=== PATIENT | female | born 1945 | race Caucasian/White ===

== ENCOUNTER 2017-07-04 06:34 | Inpatient (IN) ==
[2017-07-04] MEDS ORDERED: Lidocaine -MPF 4% 5 ML AMPUL ONE (06:49)
[2017-07-04] MEDS ORDERED: *HR* FentaNYL (PF) 100 MCG/2 ML VIAL ONE (06:54)
[2017-07-04] MEDS ORDERED: *HR* Rocuronium Bromide 50 MG/5 ML VIAL ONE (06:55)
[2017-07-04] MEDS ORDERED: Dexamethasone 4 MG/ML VIAL ONE ×2 (06:55→12:40)
[2017-07-04] MEDS ORDERED: *HR* Phenylephrine 10 MG/ML VIAL ONE ×2 (06:55→12:14)
[2017-07-04] MEDS ORDERED: *HR* Succinylcholine 200 MG/10 ML VIAL IVP ONE (06:55)
[2017-07-04] MEDS ORDERED: *HR* Heparin 5,000 UNIT/ML VIAL ONE ×2 (06:55→12:10)
[2017-07-04] MEDS ORDERED: *HR* Propofol 200 MG/20 ML VIAL IVP ONE ×2 (06:55→07:09)
[2017-07-04] MEDS ORDERED: Ondansetron 4 MG/2 ML VIAL ONE ×3 (06:55→12:40)
[2017-07-04] MEDS ORDERED: Lidocaine -MPF 2% 2 ML VIAL ONE (06:55)
--- NOTE | 2017-07-04 07:00 | Anesthesia Evaluation PreOp ---
Date of Encounter: 07/04/17 Time of Encounter: 06:55 - Past History Planned Operation: Left Femoral to Right Femoral Bypass Graft - Cardiac History: HTN, Hyperlipidemia, Other (Peripheral artery disease with intermittent claudication.) Pulmonary History: Smoker (1 pack/day for many years. 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 WBC 11.3 Hgb 13.1 Hct 40 Plt 289 PT 11.2 INR 1.0 PTT 26.7 Na 134 K 3.9 VPu136 CO2 19 BUN 15 Creat 0.9 Glucose 178 - Imaging EKG: report reviewed (Sinus Tachycardia with VR of 112. Anteroseptal AL ( Done on 06/29/2017)) Anesthesia Exam - HEENT Mallampati: II Teeth: Normal Oral Opening: Greater than 3 - BOILER SERVICE TECHNICIAN LOC: Oriented - Cardiac Murmur: None JVD: No Carotid Bruit: No - Pulmonary Breath Sounds: bilateral Clear Anesthesia Assess/Plan ASA Score: 2 Modified [place] Scale for Level of Consciousness: Cooperative, oriented, and tranquil Anesthetic Plan: General Autologous Blood: No Monitoring Plan: Standard Monitors Recovery Plan: PACU
[2017-07-04] MEDS ORDERED: *HR* Remifentanil 2 MG VIAL IVP ONE ×2 (07:08→11:06)
[2017-07-04] MEDS ORDERED: Heparin 1,000 UNITS/500 mL 1,000 ML ONE ×2 (07:13→11:02)
[2017-07-04] MEDS ORDERED: Heparin 1,000 UNITS/500 mL 500 ML ONE (07:24)
--- NOTE | 2017-07-04 07:24 | History & Physical Report ---
Date of Encounter: 07/04/17 Time of Encounter: 07:24 24 Hour HP Update - Instructions Instructions: If the History and Physical is less than 30 days old and was completed prior to A.M. admission and or procedure and has NOT been updated on calendar day of procedure please complete this update prior to performing procedure. - Update Patient reports changes in Medical Condition: No Changes in examination, assessment, or condition: No Changes in Medication: No Preop tests/diagnostics Reviewed: Yes Surgery Remains Indicated: Yes Consent for Planned Operative Procedure(s) Verified: Yes - Pre-Operative Checklist Preoperative Checklist Indicated: Yes Prophylactic Antibiotic Ordered: Yes Home Medications Include Beta Lily: No Beta Lily Taken Today (Day of Surgery): No Beta Lily Taken Yesterday (Day Prior to Surgery): No Is VTE Prophylaxis Indicated?: Yes
[2017-07-04] MEDS ORDERED: *HR* Midazolam HCl 2 MG/2 ML VIAL ONE (07:50)
[2017-07-04] MEDS ORDERED: Albuterol 2.5 MG/3 ML NEBULIZER IH ONE ×2 (08:07→09:44)
[2017-07-04] MEDS ORDERED: CeFAZolin Syr 2,000MG/20 ML 2,000 MG/20 ML SYRINGE IVPB ONE (08:07)
[2017-07-04] MEDS ORDERED: Ringers Solution, Lactated 1,000 ML IVC SCH (08:15)
--- NOTE | 2017-07-04 09:43 | Anesthesia Procedures ---
Date of Encounter: 07/04/17 Time of Encounter: 09:00 Procedures: Anesthesia - Arterial Line Consent obtained: verbal consent Time out performed: Yes Size (Gauge): 20 Technique Used: sterile prep, direct puncture technique Post-Procedure: dry sterile dressing placed Patient tolerated procedure: well, no complications Complications: none Site: Radial L Vitals: Vital Signs - Last 8 Hours Temp Pulse Resp BP Pulse Ox 07/04/17 08:22 98.2 F 88 18 115/77 97 07/04/17 06:57 98.2 F 88 18 115/77 97 Intake and Output 07/03/17 07/04/17 07/04/17 23:59 07:59 15:59 Other: Weight 68.946 kg 68.946 kg Blood Glucose* 179 179 Patient Weight 07/04/17 23:59 Weight 68.946 kg Comments: ULTRASOUND USED FOR RADIAL TONI AFTER INDUCTION
[2017-07-04] MEDS ORDERED: *HR* Labetalol 20 MG/4 ML SYRINGE IVP PRN (09:44)
[2017-07-04] MEDS ORDERED: *HR* Promethazine 25 MG/ML VIAL IVP PRN (09:44)
[2017-07-04] MEDS ORDERED: *HR* HYDROmorphone (PF) 1 MG/ML SYRINGE IVP PRN (09:44)
[2017-07-04] MEDS ORDERED: EPHEDrine 50 MG/ML VIAL ONE (11:11)
--- NOTE | 2017-07-04 13:13 | Operative Note ---
Date of procedure: 07/04/17 Pre-op diagnosis: PAD/claudication Post-op diagnosis: same Procedure: bilateral open femoral exposure aortic catheterization, non selective bilateral iliac artery and in stent stenosis balloon angioplasties, using 5, 6, and 8 mm diameter balloons Complications: none Anesthesia: BRYA Surgeon: Gabriel Covarrubias Estimated blood loss (cc): 150 Specimen: none Condition: stable Disposition: PACU Procedure in Detail: History Yancy Oswald is a 71-year-old white female who was seen in consultation from an outside facility for evaluation of lower extremity pain. The patient cleaned of bilateral lower extremity pain worse on the right side than on the left. Ankle-brachial index was approximately 0.3 on the right and approximately 0.4 on the left. She has had previous interventions dating back to 2011 that included iliac artery stent angioplasties. She had a repeat loon intervention in February of this year and [facility]. The patient has had recurrent symptoms particularly on the right side. ACTH Ej demonstrated occlusion of the right iliac system. The patient now comes in for revascularization of the lower extremities. Procedure After informed consent was obtained the patient was taken to the operating room. General endotracheal anesthesia was established and an arterial line was placed. A timeout protocol was observed. The abdomen groin and right lower extremity was then sterilely prepped and draped. An incision was made in the right groin in a vertical orientation with the anticipation the patient may require endarterectomy and patch. Dissection revealed however that the artery though small in diameter was quite soft and there is no obvious plaque formation. This vessel was without pulsation. After adequate control was obtained of this vessel and 18-gauge needle was used to puncture the vessel in a retrograde manner. This is followed by a wire and a short 6 Kisw[place]ili sheath. The dilator was removed and the sheath was aspirated and flushed. An angiogram was then performed through the sheath. This demonstrated occlusion of the right iliac system. A wire was then placed and under fluoroscopic control it was manipulated through the right iliac artery occlusion. It was then passed into the aorta and reentry into the true lumen of the aorta was confirmed with contrast injection. Should be noted the patient has kissing stents from a previous intervention about 5 years ago. Due to the orientation of the stents overlapping nature of the stents it was thought gonzalez to protect the left iliac stent. Therefore the left groin was opened and a vascular access was obtained using a needle and a wire and a standard length 6 Kis[place]ili sheath. Through a retrograde injection on the left side it was identified that the patient had a high-grade stenosis in the left external iliac artery of approximately 90%. This is a multifocal area. Heparin was then administered a dose of 5000 units. An angioplasty was performed of the right iliac system using a 5 mm wide by 200 mm long balloon. At the same time a 5 x 40 balloon was placed into the left common iliac stent to protect this stent from being dislodged or stenosed. The balloons were then inflated simultaneously. A completion anterior was performed. This showed an inadequate response and the stents appeared to measure approximately 8 mm in diameter. Also the patient's stenosis on the left external iliac artery were quite clear. Therefore this left iliac area was angioplastied again with balloons with a successful result as confirmed by retrograde angiogram. A Omni Flush catheter was placed via the left side into the aortic bifurcation and a formal aortogram was obtained. This demonstrated that the right common iliac artery stent was incompletely dilated and there was minimal to no flow in the right external iliac artery. There was no flow in the right internal iliac artery. Therefore a series of balloons were then placed including an 8 mm diameter balloon placed in each stent and inflated again because of the kissing nature of the stents and her overlapping position. Then a 6 mm diameter stents were placed into the right external iliac artery. After series of dilatations a completion in [place] was then obtained. This demonstrated that both iliac systems were now patent. The stent areas were widely patent. 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 With these findings and pulsatile flow to the level of the common femoral artery femoral-femoral bypass graft was now no longer needed. Therefore the catheters were removed and the puncture sites were closed using 6- 0 Prolene suture. After appropriate backbleeding and flushing pulsatile flow into the lower extremities was restored first to the right ligament to the left. There is no hemodynamic distress with this maneuver. The groin incisions were then irrigated and hemostasis achieved. Doppler signals were identified proximal and distal to the area of the puncture. Doppler signals identified over the dorsum of the right foot. The wounds were then closed in layers using absorbable suture. Dry sterile dressings were applied. The patient was extubated in the operating room. She was taken to the recovery room in stable condition.
[2017-07-04] MEDS ORDERED: *HR* HYDROmorphone 2 MG/ML SYRINGE ONE (13:21)
[2017-07-04] MEDS ORDERED: *HR* Dextrose 50 % in Water (Syg) 50 ML SYRINGE IVP PRN (14:13)
[2017-07-04] MEDS ORDERED: Naloxone 0.4 MG/ML INJ IVP PRN (14:13)
[2017-07-04] MEDS ORDERED: Dextrose Gel 15 GM PO PRN ×2 (14:13)
[2017-07-04] MEDS ORDERED: Acetaminophen 325 MG TABLET PO PRN (14:13)
[2017-07-04] MEDS ORDERED: D5% in Water 1,000 ML IVC PRN (14:13)
[2017-07-04] MEDS ORDERED: Ondansetron 4 MG/2 ML VIAL IVP PRN (14:13)
[2017-07-04] MEDS ORDERED: *HR* Morphine 2 MG/ML SYRINGE IVP PRN ×2 (14:13)
--- NOTE | 2017-07-04 14:18 | Anesthesia Evaluation Post Op ---
Date of Encounter: 07/04/17 Time of Encounter: 14:18 - Vital Signs Vital Signs: Selected Entries 07/04/17 14:05 Temperature 98.8 F Pulse Rate 111 Respiratory Rate 16 Blood Pressure 162/84 O2 Sat by Pulse Oximetry 98 Oxygen Flow Rate (LPM) 2 - Lungs Lungs: Clear Ascult./Percussion - Airway Airway: Non-obstructed - Cardiovascular Regular Rate - Mental Status Mental Status: Alert & Oriented, Answers Appropriately - Pain Pain Scale: 0 Pain Scale used: Numeric (1 - 10) - Nausea Vomiting Nausea Vomiting: Not Present - Hydration Hydration: Ice chips, Lucero catheter - Discharge PostOp Status: Transfer Patient to floor
[2017-07-04] MEDS: *HR* HYDROcodone/Acet 5/325 mg TABLET PO PRN (14:47)
[2017-07-04] MEDS ORDERED: *HR* Metoprolol 5 MG/5 ML VIAL IVP ONE ×2 (14:50→15:37)
[2017-07-04] MEDS ORDERED: *HR* Metoprolol 5 MG/5 ML VIAL IVP PRN (16:04)
[2017-07-04] MEDS: Insulin LISPRO 300 UNITS/3 ML VIAL SQ SCH (16:27)
[2017-07-04] MEDS: CeFAZolin Premix DUPLEX 2,000 MG/50 ML BAG IVPB SCH ×2 (17:33→23:19)
[2017-07-04] MEDS ORDERED: hydroCHLOROthiazide 25 MG TABLET PO SCH (21:00)
[2017-07-04] MEDS ORDERED: Insulin LISPRO 300 UNITS/3 ML VIAL SQ SCH (21:00)
[2017-07-05 05:09] LABS: Basophils % 0.1 %; Hematocrit 31.9 % (35.3-44.9); Immature Granulocytes % 0.5 % (0-4); Lymphocytes # 2.5 K/mcL (0.6-4.6); Lymphocytes % 12.7 %; Mean Corpuscular HGB Conc 33.9 g/dL (31.6-35.5); Mean Corpuscular Volume 88.6 fL (83.0-100.0); Mean Platelet Volume 10.2 fL (9.4-12.4); Monocytes # 1.3 K/mcL (0.0-1.3); Monocytes % 6.6 %; Platelet Count 250 K/mcL (140-400); Red Cell Distribution Width 12.7 % (11.5-14.5); Segmented Neutrophils % 80.1 %
[2017-07-05 05:11] LABS: Hemoglobin 10.8 g/dL (11.5-15.4)
[2017-07-05 05:19] LABS: BUN/Creatinine Ratio 17 (6-26); Blood Urea Nitrogen 13 mg/dL (8-23); Calcium 9.3 mg/dL (8.6-10.3); Carbon Dioxide 22 mEq/L (23-29); Chloride 107 mEq/L (98-107); Glucose 176 mg/dL (70-105); Osmolality,Calculated 284 (280-300); Sodium 135 mEq/L (136-145); eGFR For African Americans > 60 (> 60); eGFR For Non-African Americans > 60 (> 60)
[2017-07-05] MEDS: *HR* HYDROcodone/Acet 5/325 mg TABLET PO PRN ×2 (07:44→13:35)
[2017-07-05] MEDS: CeFAZolin Premix DUPLEX 2,000 MG/50 ML BAG IVPB SCH (07:52)
[2017-07-05] MEDS: Insulin LISPRO 300 UNITS/3 ML VIAL SQ SCH ×2 (07:52→12:04)
--- NOTE | 2017-07-05 08:23 | Discharge Summary ---
Date of Encounter: 07/05/17 Time of Encounter: 08:17 - Discharge Diagnosis (1) PAD (peripheral artery disease) Priority: Primary Status: Chronic Comments: Severe and recurrent lower extremity vascular occlusive disease. Patient had original stents placed in 2011 with bilateral iliac stent. Had a balloon angioplasty in February. Patient now presents with occluded right iliac system. (2) Type 2 diabetes mellitus Priority: Secondary Status: Chronic Comments: Patient is under medical management Qualifiers: Diabetes mellitus complication status: with circulatory complication Diabetes mellitus complication detail: with peripheral angiopathy without gangrene Diabetes mellitus fci insulin use: without fci use Qualified Code(s): E11.51 - Type 2 diabetes mellitus with diabetic peripheral angiopathy without gangrene (3) Hypertension Priority: Secondary Status: Chronic Comments: Patient is under medical management Qualifiers: Hypertension type: essential hypertension Qualified Code(s): I10 - Essential (primary) hypertension (4) Tobacco abuse Priority: Secondary Status: Chronic Comments: Patient has long-term tobacco abuse. Patient was informed of the need for complete tobacco cessation. Nicotine patches were prescribed for the patient at discharge. - Discharge Medications Home Medications: Atorvastatin Calcium [Lipitor] 20 mg PO DAILY 07/04/17 [History] Clopidogrel [Plavix] 75 mg PO DAILY 07/04/17 [History] Glimepiride [Amaryl] 1 mg PO DAILY 07/04/17 [History] Losartan/Hydrochlorothiazide [Losartan-Hctz 100-12.5 mg Tab] 1 tab PO DAILY [History] Metformin HCl [Metformin HCl ER] 2,000 mg PO DAILY 07/04/17 [History] HYDROcodone/Acet 5/325 mg [Crosby 5-325 mg] 1 tab PO Q6HR PRN tablet 07/05/17 [ Rx] Nicotine Patch [Nicoderm] 14 mg TD DAILY patch.[id number] 07/05/17 [Rx] Allergies/Adverse Reactions: 3 Allergy/AdvReac Type Severity Reaction Status Date / Time No Known Allergies Allergy Verified 07/04/17 07:05 Date of admission: 07/04/17 14:10 Primary care physician: PCP NONE Consults: None Procedure(s) Performed: Bilateral femoral exposure, abdominal aortogram, bilateral iliac artery balloon angioplasties. Discharging clinician: Gabriel Covarrubias Anticipated date of discharge: 07/05/17 - Patient Status Disposition: Home, Self-Care Condition: Good Functional capacity at discharge: independent ambulation Overall status at discharge: patient is progressing back to baseline - Discharge Instructions Follow Up With: UZAIR OLIVER [Other] - 07/11/17 8:45 am Gabriel Covarrubias MD [Partnered Physician] - 08/02/17 9:45 am Additional Instructions: Patient is to hold metformin for total of 48 hours following surgery then resume usual home dose. Patient is to ambulate 20 minutes twice a day at a minimum. Elevate lower extremities while at rest to avoid postoperative edema. Keep groin surgical incisions dry for 5 days following surgery then patient may bathe. use incentive spirometer at home for the next 2 weeks with goal of 10 times per hour while awake. No lifting greater than 10 pounds. No manual labor No automobile driving. - Diet and Activity Activity: increase activity as tolerated Diet: advance to your usual diet, diabetic diet - Hospital Course Hospital course: Ms. Barriga is a 71 year old female With a long history of lower extremity vascular disease. She had undergone previous bilateral common iliac artery stents at an outside institution. She had return of her symptoms earlier this year and had a balloon angioplasty of the right iliac system in February. Then she was seen by me in my clinic late this year. With a copy to past history I recommended that the patient undergo a CT Justyna Pagan which was performed and now she comes to the hospital for admission and then surgery. At surgery she had a bilateral open femoral artery exposure. She had retrograde Justyna Grams and aortic angiogram. The right common iliac artery system was occluded but a wire was able to be advanced through the occlusion. Multiple balloon H plasties were then performed of both the left and right iliac system with restitution of flow. The right common and external iliac arteries were widely patent as were the stents. The right internal iliac artery was occluded. Post-procedurally the patient did very well. She had a warm and pink right foot. She had excellent Doppler signals bilaterally. She was felt fit for discharge on the afternoon of postoperative day #1. Instructions were given to the patient prior to discharge. - Time Spent with Patient Total time spent providing and/or coordinating discharge services: Exam Vital Signs, Last 4 Hours Temp Pulse Resp BP Pulse Ox 07/05/17 07:35 98.9 F 91 18 138/69 96 General: Present: Conversant, No Apparent Distress Abdomen: Present: Soft, Non-tender Vascular: Present: Color/Temperature (Feet are warm and pink with hypoperfusion of the right foot.), Surgical incisions (Clean and dry), Other (Patient has excellent Doppler signals at the right and left ankles.) - VTE Documentation of Mechanical Device: Intermittent pneumatic compression device
[2017-07-05] MEDS ORDERED: NON-FORMULARY MEDICATION 1 EACH EACH (Losartan/Hydrochlorothiazide [Losartan-Hctz 100-12.5 PO SCH (09:00)
[2017-07-05] MEDS ORDERED: hydroCHLOROthiazide 25 MG TABLET PO SCH (09:00)
[2017-07-05] MEDS ORDERED: *HR* Glimepiride 2 MG TABLET PO SCH (09:00)
[2017-07-05] MEDS ORDERED: Nicotine 14 MG PATCH.TD24 TD SCH (09:00)
[2017-07-05 11:42] VITALS: BP 122/67
== END 2017-07-05 17:08 | disposition home or self-care (01) | DRG 253 ==
LOC: SAMDAY 06:34 → 2NNU 14:10
PROVIDERS: ADMIT Surgery Vascular Surgery; ATTEND Surgery Vascular Surgery
PROC: VASFFBG (ICD-10-PCS; 2017-07-04 07:45)